=== PATIENT | male | born 1950 | race Caucasian/White ===

== ENCOUNTER 2017-10-27 06:44 | Day surgery (SDC) | payer OTHER ==
[2017-10-21 12:40] LABS: BASOPHILS % (AUTO) 0.4 % (0-1); EOSINOPHILS # (AUTO) 0.3 X10'3 (0-0.9); EOSINOPHILS % (AUTO) 2.7 % (0-6); LYMPHOCYTES # (AUTO) 1.6 X10'3 (1.1-4.8); LYMPHOCYTES % (AUTO) 16.1 % (21-51); MEAN CORPUSCULAR HEMOGLOBIN 29.4 PG (27.0-31.0); MEAN CORPUSCULAR HGB CONC 33.4 % (33.0-36.5); MEAN CORPUSCULAR VOLUME 88.2 FL (78-98); MEAN PLATELET VOLUME 8.3 FL (7.4-10.4); MONOCYTES # (AUTO) 0.7 X10'3 (0-0.9); MONOCYTES % (AUTO) 6.6 % (2-12); NEUTROPHILS # (AUTO) 7.4 X10'3 (1.8-7.7); NEUTROPHILS % (AUTO) 74.2 % (42-75); PRE OP HEMATOCRIT 49.5 % (42.0-52.0); PRE OP HEMOGLOBIN 16.5 g/dL (14.0-17.9); PRE OP PLATELET COUNT 245 X10'3 (140-440); RED BLOOD COUNT 5.61 X10'6 (4.70-6.10); RED CELL DISTRIBUTION WIDTH 13.6 % (11.5-14.5)
[2017-10-21 12:45] LABS: CLARITY,URINE CLEAR (Clear); COLOR,URINE YELLOW (Yellow); GLUCOSE, URINE >=1000 mg/dl (Neg); KETONES,URINE NEGATIVE (Neg); LEUKOCYTE ESTERASE ,URINE NEGATIVE (Neg); NITRITES, URINE NEGATIVE (Neg); OCCULT BLOOD,URINE NEGATIVE (Neg); PROTEIN,URINE NEGATIVE (Neg); UROBILINOGEN,URINE 0.2 E.U/dL (0.2-1.0)
[2017-10-21 12:49] LABS: UA COLLECTION TYPE VOIDED
[2017-10-21 12:52] LABS: ALBUMIN 4.2 G/DL (3.4-5.0); ALKALINE PHOSPHATASE 96 IU/L (46-116); BLOOD UREA NITROGEN 19 MG/DL (7-18); BUN/CREATININE RATIO 20.9 (5.4-32.0); CALCIUM 9.9 MG/DL (8.5-10.1); CHLORIDE 103 MMOL/L (99-107); CREATININE 0.91 MG/DL (0.60-1.10); PRE OP ALT 28 U/L (30-65); PRE OP ANION GAP 12 (8-16); PRE OP AST 15 U/L (10-37); PRE OP BILIRUB, TOTAL 0.5 MG/DL (0.0-1.0); PRE OP GLUCOSE 99 MG/DL (70-104); PRE OP POTASSIUM 4.6 MMOL/L (3.4-5.1); PRE OP SODIUM 140 MMOL/L (135-145); TOTAL CARBON DIOXIDE 25.5 MMOL/L (24-32); TOTAL PROTEIN 8.5 G/DL (6.4-8.2); eGFR 83 ML/MIN
[2017-10-21 13:00] LABS: RBC,URINE NONE SEEN /HPF (0-2); WBC,URINE 0-4 /HPF (0-4)
[2017-10-21 13:01] LABS: BACTERIA,URINE NONE SEEN /HPF (Neg); MUCUS STRANDS FEW /LPF (Neg); SQUAMOUS EPITHELIAL CELL,UR FEW /LPF (FEW)
[~2017-10-27] VITALS: Ht 177.8 cm; Wt 97.2 kg
[~2017-10-27 06:44] MED LIST: ATOR10TA87 PO; CARV3.12 PO; EMPA10TA PO; INSU300I SQ; LISI10TA4 PO; SITA1TBM7 PO; SITA25TA3 PO; acetaminophen 325mg tablet PO ONE; ceFAZolin 2gm in dextrose, iso 100 ML IV ONE; celeCOXIB 100mg capsule PO ONE; famotidine 20mg tablet PO ONE; gabapentin 300mg capsule PO ONE; metoclopramide 5 mg/ml inj IV ONE; oxyCODONE SR 10mg (sust. release) tab PO ONE; ringers solution, lacted 1,000 ML IV SCH; tranexamic acid inj. 1,000 MG in normal saline 100ml IV soln 90 ML IV ONE; vancomycin inj 1,500 MG in normal saline 300ml IV soln IV ONE
[2017-10-27 09:27] VITALS: BP 149/84
[2017-10-27 09:30] VITALS: BP 149/84
[2017-10-27] MEDS ORDERED: potassium cl 20mEq in 1/2 NS 1,000 ML IV SCH (10:07)
[2017-10-27] MEDS ORDERED: oxyCODONE/APAP 10/325mg tablet PO PRN ×2 (10:10)
[2017-10-27] MEDS ORDERED: magnesium hydroxide 30ml (MOM) UD suspension PO PRN (10:10)
[2017-10-27] MEDS ORDERED: diphenhydrAMINE 25mg capsule PO PRN ×2 (10:10)
[2017-10-27] MEDS ORDERED: acetaminophen 325mg tablet PO PRN (10:10)
[2017-10-27] MEDS ORDERED: insulin Lispro (HumaLOG) vial - multi-dose SQ SCH (10:10)
[2017-10-27] MEDS ORDERED: MORPHINE 2MG in 2ml NS syringe IV PRN (10:10)
[2017-10-27] MEDS ORDERED: glucagon, human recombinant 1mg kit SUBCUT PRN (10:10)
[2017-10-27] MEDS ORDERED: dextrose 50%-water 50ml dispensing syringe IV PRN ×2 (10:10)
[2017-10-27] MEDS ORDERED: dextrose ORAL solution 15 GM/59 ML bottle PO PRN ×2 (10:10)
[2017-10-27] MEDS ORDERED: ondansetron/PF 4mg/2ml inj IV PRN (10:10)
[2017-10-27] MEDS ORDERED: bisacodyl 10mg suppository rectal RC PRN (10:10)
[2017-10-27] MEDS ORDERED: MESSAGE TO PHARMACY PO ONE (10:10)
[2017-10-27] MEDS ORDERED: gabapentin 300mg capsule PO SCH (13:00)
[2017-10-27] MEDS ORDERED: ascorbic acid 500mg tablet PO SCH (20:00)
[2017-10-27] MEDS ORDERED: carVEDilol 3.125mg tablet PO SCH (20:00)
[2017-10-27] MEDS ORDERED: sennosides 8.6mg tablet PO SCH (21:00)
[2017-10-28] MEDS ORDERED: lisinopril 10 MG tablet PO SCH (08:00)
[2017-10-28] MEDS ORDERED: atorvastatin 10mg tablet PO SCH (08:00)
[2017-10-28] MEDS ORDERED: multivitamins, therapeutics tablet PO SCH (08:00)
[2017-10-28] MEDS ORDERED: aspirin 325mg tablet PO SCH (08:30)
== END 2017-10-27 15:00 | disposition home or self-care (01) ==
LOC: PAS IN 06:44 → UNDOADMIN 06:44 → PAS 06:44 → EDSTATUS 09:15 → UNDODISIN 15:00 → PAS 15:00
PROVIDERS: ATTEND Orthopaedic Surgery
DX: M87.052 Idiopathic aseptic necrosis of left femur (principal); E11.9 Type 2 diabetes mellitus without complications; I10 Essential (primary) hypertension; E66.9 Obesity, unspecified; Z53.8 Procedure and treatment not carried out for other reasons; Z79.82 Long term (current) use of aspirin; Z72.89 Other problems related to lifestyle; Z79.84 Long term (current) use of oral hypoglycemic drugs; Z90.89 Acquired absence of other organs; Z79.4 Long term (current) use of insulin; Z68.30 Body mass index [BMI] 30.0-30.9, adult; Z98.890 Other specified postprocedural states; Z79.899 Other long term (current) drug therapy
CPT/HCPCS: 36415; 71046; 80053; 81001; 82948; 83036; 85025; 86885; 86900; 86901; 87070; C1758; J0690; J2765; J3370; J7030; J7120

== ENCOUNTER 2018-01-05 06:03 | Inpatient (IN) | payer OTHER ==
[2017-12-30 16:28] LABS: BASOPHILS % (AUTO) 0.3 % (0-1); EOSINOPHILS # (AUTO) 0.2 X10'3 (0-0.9); EOSINOPHILS % (AUTO) 1.9 % (0-6); LYMPHOCYTES # (AUTO) 1.9 X10'3 (1.1-4.8); LYMPHOCYTES % (AUTO) 17.7 % (21-51); MEAN CORPUSCULAR HEMOGLOBIN 29.4 PG (27.0-31.0); MEAN CORPUSCULAR HGB CONC 33.7 % (33.0-36.5); MEAN CORPUSCULAR VOLUME 87.4 FL (78-98); MEAN PLATELET VOLUME 8.3 FL (7.4-10.4); MONOCYTES # (AUTO) 0.7 X10'3 (0-0.9); MONOCYTES % (AUTO) 6.9 % (2-12); NEUTROPHILS # (AUTO) 7.8 X10'3 (1.8-7.7); NEUTROPHILS % (AUTO) 73.2 % (42-75); PRE OP HEMATOCRIT 47.7 % (42.0-52.0); PRE OP PLATELET COUNT 223 X10'3 (140-440); RED BLOOD COUNT 5.45 X10'6 (4.70-6.10); RED CELL DISTRIBUTION WIDTH 14.3 % (11.5-14.5)
[2017-12-30 16:36] LABS: CLARITY,URINE CLEAR (Clear); COLOR,URINE YELLOW (Yellow); GLUCOSE, URINE >=1000 mg/dl (Neg); KETONES,URINE NEGATIVE (Neg); LEUKOCYTE ESTERASE ,URINE NEGATIVE (Neg); NITRITES, URINE NEGATIVE (Neg); OCCULT BLOOD,URINE NEGATIVE (Neg); PROTEIN,URINE NEGATIVE (Neg); UROBILINOGEN,URINE 0.2 E.U/dL (0.2-1.0)
[2017-12-30 16:37] LABS: UA COLLECTION TYPE CLN CATCH MIDSTREAM
[2017-12-30 16:43] LABS: ALBUMIN/GLOBULIN RATIO 1.1 (1.1-1.5); BLOOD UREA NITROGEN 19 MG/DL (7-18); BUN/CREATININE RATIO 20.4 (5.4-32.0); CALCIUM 9.4 MG/DL (8.5-10.1); CHLORIDE 102 MMOL/L (99-107); CREATININE 0.93 MG/DL (0.60-1.10); PRE OP ALT 24 U/L (30-65); PRE OP ANION GAP 8 (8-16); PRE OP AST 14 U/L (10-37); PRE OP BILIRUB, TOTAL 0.5 MG/DL (0.0-1.0); PRE OP GLUCOSE 111 MG/DL (70-104); PRE OP POTASSIUM 4.4 MMOL/L (3.4-5.1); PRE OP SODIUM 138 MMOL/L (135-145); TOTAL CARBON DIOXIDE 27.8 MMOL/L (24-32); TOTAL PROTEIN 7.7 G/DL (6.4-8.2); eGFR 81 ML/MIN
[2017-12-30 16:50] LABS: HEMOGLOBIN A1C 6.4 % (4.5-6.2)
[2017-12-30 17:05] LABS: ALKALINE PHOSPHATASE 94 IU/L (46-116)
[2017-12-30 17:14] LABS: BACTERIA,URINE FEW /HPF (Neg); RBC,URINE 0-2 /HPF (0-2); SQUAMOUS EPITHELIAL CELL,UR FEW /LPF (FEW); WBC,URINE 0-4 /HPF (0-4)
[~2018-01-05] VITALS: Ht 177.8 cm; Wt 97.1 kg
[2018-01-05] VITALS (19 sets, daily range): BP systolic 83–131; BP diastolic 47–77
[~2018-01-05 06:03] MED LIST changes: +DOCUMENT DATE & TIME OF BETA-BLOCKER PO ONE; -EMPA10TA PO; -SITA25TA3 PO; +VANCOMYCIN INJ 1000 MG in NORMAL SALINE 250ml IV.SOLN IV ONE; -ceFAZolin 2gm in dextrose, iso 100 ML IV ONE; +ceFAZolin inj. 2,000 MG in dextrose 5%-water 100 ML IV ONE; -vancomycin inj 1,500 MG in normal saline 300ml IV soln IV ONE
[2018-01-05] MEDS ORDERED: ketorolac trometh. 30mg/ml inj. ONE (06:52)
[2018-01-05] MEDS ORDERED: epiNEPHrine 1 mg/ml inj ONE (06:52)
[2018-01-05] MEDS ORDERED: vancomycin 1,000mg inj ONE (06:52)
[2018-01-05] MEDS ORDERED: cloNIDine hcl/PF 100mcg/ml inj ONE (06:52)
[2018-01-05] MEDS ORDERED: ROPIVAcaine 0.5% (5mg/ml) 30ml vial ONE (06:52)
[2018-01-05] MEDS ORDERED: bisacodyl 10mg suppository rectal RC PRN (07:05)
[2018-01-05] MEDS ORDERED: glucagon, human recombinant 1mg kit SUBCUT PRN (07:05)
[2018-01-05] MEDS ORDERED: diphenhydrAMINE 25mg capsule PO PRN ×2 (07:05)
[2018-01-05] MEDS: potassium cl 20mEq in 1/2 NS 1,000 ML IV SCH ×2 (07:05→14:03)
[2018-01-05] MEDS ORDERED: magnesium hydroxide 30ml (MOM) UD suspension PO PRN (07:05)
[2018-01-05] MEDS ORDERED: dextrose 50%-water 50ml dispensing syringe IV PRN ×2 (07:05)
[2018-01-05] MEDS ORDERED: insulin Lispro (HumaLOG) vial - multi-dose SQ SCH (07:05)
[2018-01-05] MEDS ORDERED: acetaminophen 325mg tablet PO PRN (07:05)
[2018-01-05] MEDS ORDERED: MESSAGE TO PHARMACY PO ONE (07:05)
[2018-01-05] MEDS ORDERED: ondansetron/PF 4mg/2ml inj IV PRN ×3 (07:05→10:00)
[2018-01-05] MEDS ORDERED: dextrose ORAL solution 15 GM/59 ML bottle PO PRN ×2 (07:05)
[2018-01-05] MEDS ORDERED: HYDROmorphone inj. 0.5 MG/0.5 ML DISP.SYRIN IV PRN ×2 (07:05)
[2018-01-05] MEDS: multivitamins, therapeutics tablet PO SCH (08:00)
[2018-01-05] MEDS: atorvastatin 10mg tablet PO SCH (08:00)
[2018-01-05] MEDS: carVEDilol 3.125mg tablet PO SCH ×2 (08:00→20:13)
[2018-01-05] MEDS: ascorbic acid 500mg tablet PO SCH ×2 (08:00→20:12)
[2018-01-05] MEDS: gabapentin 300mg capsule PO SCH ×3 (08:00→20:13)
[2018-01-05] MEDS: lisinopril 10 MG tablet PO SCH (08:00)
[2018-01-05] MEDS: aspirin 325mg tablet PO SCH (08:30)
[2018-01-05] MEDS ORDERED: MIDAZolam 1mg/ml 10ml vial ONE (08:46)
[2018-01-05] MEDS ORDERED: morphine sulfate /PF 0.5 MG/ML 10mL ampul ONE (08:47)
[2018-01-05] MEDS ORDERED: fentaNYL/PF 50MCG/1 ML 2ML syringe ONE (08:47)
[2018-01-05] MEDS ORDERED: BUPIVAcaine/PF 7.5mg/ml (0.75%) 10ml vial ONE (08:49)
[2018-01-05] MEDS ORDERED: tetracaine 1% (10mg/ml) pres. free inj. ONE (08:49)
[2018-01-05] MEDS ORDERED: propofol inj 20 ML IV ONE ×2 (09:12)
[2018-01-05] MEDS ORDERED: morphine 4 MG/ML inj SYRINge IV PRN ×2 (09:55)
[2018-01-05] MEDS ORDERED: hydrALAZINE 20mg/ml inj. IV PRN (09:55)
[2018-01-05] MEDS ORDERED: fentaNYL/PF 50MCG/1 ML 2ML syringe IV PRN ×2 (09:55)
[2018-01-05] MEDS ORDERED: labetalol 20mg/4ml (5mg/ml) syringe IV PRN (09:55)
[2018-01-05] MEDS ORDERED: ringers solution, lacted 1,000 ML IV SCH (09:55)
[2018-01-05] MEDS ORDERED: diphenhydrAMINE 50 mg/ml inj IV PRN (10:00)
[2018-01-05] MEDS: ceFAZolin 2gm in dextrose, iso 100 ML IV SCH (16:50)
[2018-01-05] MEDS: oxyCODONE/APAP 10/325mg tablet PO PRN (20:14)
[2018-01-05] MEDS: insulin glargine (Lantus) pen - multi-dose SQ SCH (21:00)
[2018-01-05] MEDS: sennosides 8.6mg tablet PO SCH (21:00)
[2018-01-06] VITALS (7 sets, daily range): BP systolic 103–119; BP diastolic 55–82
[2018-01-06] MEDS: ceFAZolin 2gm in dextrose, iso 100 ML IV SCH (00:23)
[2018-01-06] MEDS: potassium cl 20mEq in 1/2 NS 1,000 ML IV SCH ×4 (00:23→23:05)
[2018-01-06] MEDS: oxyCODONE/APAP 10/325mg tablet PO PRN ×4 (00:24→19:10)
[2018-01-06 05:37] LABS: BASOPHILS % (AUTO) 0.4 % (0-1); EOSINOPHILS # (AUTO) 0.2 X10'3 (0-0.9); EOSINOPHILS % (AUTO) 2.5 % (0-6); HEMATOCRIT 34.6 % (42.0-52.0); HEMOGLOBIN 11.7 g/dl (14.0-17.9); LYMPHOCYTES # (AUTO) 1.5 X10'3 (1.1-4.8); LYMPHOCYTES % (AUTO) 19.3 % (21-51); MEAN CORPUSCULAR HEMOGLOBIN 29.8 PG (27.0-31.0); MEAN CORPUSCULAR HGB CONC 33.9 % (33.0-36.5); MEAN CORPUSCULAR VOLUME 87.9 FL (78-98); MEAN PLATELET VOLUME 8.8 FL (7.4-10.4); MONOCYTES # (AUTO) 0.6 X10'3 (0-0.9); MONOCYTES % (AUTO) 7.6 % (2-12); NEUTROPHILS # (AUTO) 5.5 X10'3 (1.8-7.7); NEUTROPHILS % (AUTO) 70.2 % (42-75); PLATELET COUNT 161 X10'3 (140-440); RED BLOOD COUNT 3.94 X10'6 (4.70-6.10); RED CELL DISTRIBUTION WIDTH 14.2 % (11.5-14.5); WHITE BLOOD COUNT 7.8 X10'3 (4.5-11.0)
[2018-01-06 05:44] LABS: ANION GAP 7 (8-16); CHLORIDE 102 MMOL/L (99-107); POTASSIUM 4.8 MMOL/L (3.5-5.1); SODIUM 135 MMOL/L (135-145); TOTAL CARBON DIOXIDE 25.9 MMOL/L (24-32)
[2018-01-06] MEDS: multivitamins, therapeutics tablet PO SCH (07:34)
[2018-01-06] MEDS: aspirin 325mg tablet PO SCH (07:34)
[2018-01-06] MEDS: ascorbic acid 500mg tablet PO SCH ×2 (07:34→19:09)
[2018-01-06] MEDS: lisinopril 10 MG tablet PO SCH (07:34)
[2018-01-06] MEDS: gabapentin 300mg capsule PO SCH ×3 (07:34→20:28)
[2018-01-06] MEDS: atorvastatin 10mg tablet PO SCH (07:34)
[2018-01-06] MEDS: carVEDilol 3.125mg tablet PO SCH ×2 (07:34→19:09)
[2018-01-06] MEDS: sennosides 8.6mg tablet PO SCH (20:26)
[2018-01-06] MEDS: insulin glargine (Lantus) pen - multi-dose SQ SCH (20:45)
[2018-01-07] MEDS: oxyCODONE/APAP 10/325mg tablet PO PRN ×3 (01:22→12:23)
[2018-01-07 05:35] LABS: BASOPHILS % (AUTO) 0.1 % (0-1); EOSINOPHILS # (AUTO) 0.2 X10'3 (0-0.9); EOSINOPHILS % (AUTO) 2.5 % (0-6); HEMATOCRIT 33.6 % (42.0-52.0); HEMOGLOBIN 11.1 g/dl (14.0-17.9); LYMPHOCYTES # (AUTO) 1.3 X10'3 (1.1-4.8); LYMPHOCYTES % (AUTO) 16.4 % (21-51); MEAN CORPUSCULAR HEMOGLOBIN 29.3 PG (27.0-31.0); MEAN CORPUSCULAR VOLUME 88.9 FL (78-98); MEAN PLATELET VOLUME 8.9 FL (7.4-10.4); MONOCYTES # (AUTO) 0.8 X10'3 (0-0.9); MONOCYTES % (AUTO) 9.7 % (2-12); NEUTROPHILS # (AUTO) 5.8 X10'3 (1.8-7.7); NEUTROPHILS % (AUTO) 71.3 % (42-75); PLATELET COUNT 163 X10'3 (140-440); RED BLOOD COUNT 3.78 X10'6 (4.70-6.10); RED CELL DISTRIBUTION WIDTH 14.1 % (11.5-14.5); WHITE BLOOD COUNT 8.2 X10'3 (4.5-11.0)
[2018-01-07 06:00] VITALS: BP 107/55
[2018-01-07] MEDS: multivitamins, therapeutics tablet PO SCH (07:30)
[2018-01-07] MEDS: lisinopril 10 MG tablet PO SCH (07:30)
[2018-01-07] MEDS: atorvastatin 10mg tablet PO SCH (07:30)
[2018-01-07] MEDS: ascorbic acid 500mg tablet PO SCH (07:30)
[2018-01-07] MEDS: gabapentin 300mg capsule PO SCH (07:30)
[2018-01-07] MEDS: carVEDilol 3.125mg tablet PO SCH (07:30)
[2018-01-07] MEDS: aspirin 325mg tablet PO SCH (07:35)
[2018-01-07 10:06] VITALS: BP 112/70
== END 2018-01-07 12:50 | disposition home or self-care (01) | DRG 470 ==
LOC: PAS IN 06:03 → EDSTATUS 08:30 → ORTHO 4S 12:26
PROVIDERS: ADMIT Orthopaedic Surgery; ATTEND Orthopaedic Surgery
PROC: 0SRB06Z Replacement of Left Hip Joint with Oxidized Zirconium on Polyethylene Synthetic Substitute, Open Approach (ICD-10-PCS; principal; 2018-01-05 08:46)
DX: M16.12 Unilateral primary osteoarthritis, left hip (principal); M87.052 Idiopathic aseptic necrosis of left femur; E11.9 Type 2 diabetes mellitus without complications; Z82.49 Family history of ischemic heart disease and other diseases of the circulatory system; Z79.82 Long term (current) use of aspirin
CPT/HCPCS: 36415; 72170; 80051; 80053; 81001; 82948; 83036; 85025; 86885; 86900; 86901; 87070; 97110; 97116; 97161; 97530; A4615; A7000; C1758; C1776; J0171; J0690; J0735; J1815; J1885; J2250; J2274; J2704; J2765; J2795; J3010; J3370; J3490; J7030; J7060; J7120

== ENCOUNTER 2020-10-19 10:59 | Day surgery (SDC) | payer MEDICARE ==
[~2020-10-19] VITALS: Ht 177.8 cm; Wt 86.3 kg
[2020-10-19] VITALS (7 sets, daily range): BP systolic 95–139; BP diastolic 55–72
[~2020-10-19 10:59] MED LIST changes: -DOCUMENT DATE & TIME OF BETA-BLOCKER PO ONE; +LISI10TA27 PO; -LISI10TA4 PO; -VANCOMYCIN INJ 1000 MG in NORMAL SALINE 250ml IV.SOLN IV ONE; -acetaminophen 325mg tablet PO ONE; -ceFAZolin inj. 2,000 MG in dextrose 5%-water 100 ML IV ONE; -celeCOXIB 100mg capsule PO ONE; -famotidine 20mg tablet PO ONE; -gabapentin 300mg capsule PO ONE; -metoclopramide 5 mg/ml inj IV ONE; -oxyCODONE SR 10mg (sust. release) tab PO ONE; -ringers solution, lacted 1,000 ML IV SCH; -tranexamic acid inj. 1,000 MG in normal saline 100ml IV soln 90 ML IV ONE
[2020-10-19 12:13] LABS: BASOPHILS # (AUTO) 0.1 X10'3 (0-0.2); BASOPHILS % (AUTO) 0.4 % (0-1); EOSINOPHILS # (AUTO) 0.3 X10'3 (0-0.9); EOSINOPHILS % (AUTO) 2.6 % (0-6); HEMATOCRIT 38.2 % (42.0-52.0); HEMOGLOBIN 12.6 g/dl (14.0-17.9); LYMPHOCYTES # (AUTO) 1.5 X10'3 (1.1-4.8); LYMPHOCYTES % (AUTO) 11.8 % (21-51); MEAN CORPUSCULAR HEMOGLOBIN 27.1 PG (27.0-31.0); MEAN CORPUSCULAR HGB CONC 32.9 g/dL (33.0-36.5); MEAN CORPUSCULAR VOLUME 82.4 FL (78-98); MEAN PLATELET VOLUME 7.3 FL (7.4-10.4); MONOCYTES # (AUTO) 0.8 X10'3 (0-0.9); NEUTROPHILS # (AUTO) 10.3 X10'3 (1.8-7.7); NEUTROPHILS % (AUTO) 79.2 % (42-75); PLATELET COUNT 456 X10'3 (140-440); RED BLOOD COUNT 4.64 X10'6 (4.70-6.10); RED CELL DISTRIBUTION WIDTH 14.6 % (11.5-14.5)
[2020-10-19] MEDS ORDERED: GABA300C PO (12:32)
[2020-10-19] MEDS ORDERED: AMA1T PO (12:32)
[2020-10-19] MEDS ORDERED: METF850T PO (12:32)
[2020-10-19] MEDS ORDERED: fentaNYL/PF 50MCG/1 ML 2ML syringe ONE ×2 (13:08→13:54)
[2020-10-19] MEDS ORDERED: midazolam 1 mg/ML 2ml injection ONE ×2 (13:08→13:54)
[2020-10-19] MEDS ORDERED: heparin sodium, porcine/PF 100unit/ml 5ML syringe ONE (13:10)
[2020-10-19] MEDS ORDERED: LIDOcaine 1%/PF 5ML 10 MG/ML VIAL ONE (13:11)
--- NOTE | 2020-10-19 13:26 | NUR ---
Patient to angio via gurney at this time.
[2020-10-19] MEDS ORDERED: normal saline 1000ml 1,000 ML IV SCH (14:40)
== END 2020-10-19 16:45 | disposition home or self-care (01) ==
LOC: SSTAY O 10:59
PROVIDERS: ATTEND Radiology Vascular & Interventional Radiology
DX: C18.7 Malignant neoplasm of sigmoid colon (principal); K76.89 Other specified diseases of liver; C78.7 Secondary malignant neoplasm of liver and intrahepatic bile duct; I10 Essential (primary) hypertension; E11.9 Type 2 diabetes mellitus without complications; M19.90 Unspecified osteoarthritis, unspecified site; Z79.84 Long term (current) use of oral hypoglycemic drugs; Z79.899 Other long term (current) drug therapy; Z96.642 Presence of left artificial hip joint; Z20.822 Contact with and (suspected) exposure to COVID-19; Z82.49 Family history of ischemic heart disease and other diseases of the circulatory system
CPT/HCPCS: 36415; 36561; 47000; 76937; 76942; 77001; 85025; 85610; 87635; 88341; 88342; 99152; 99153; C1788; C1894; C9803; J1642; J2250; J3010; J7030; 88305